=== PATIENT | male | born 1930 | race Caucasian/White ===

== ENCOUNTER 2018-12-03 16:36 | Inpatient (IN) ==
[2018-12-03] MEDS ORDERED: NS 1,000 ML IV ONE (17:59)
--- NOTE | 2018-12-03 18:06 | PROVIDER DOCUMENTATION ---
HPI-General Adult - General Chief Complaint: Abnormal Lab[s] Stated Complaint: ABN LAB Time Seen by Provider: 12/03/18 18:00 Source: patient Allergies/Adverse Reactions: Patient Allergies Allergy/AdvReac Type Severity Reaction Status Date / Time No Known Allergies Allergy Verified 02/07/15 13:10 Home Medications: Home Medication List Medication Instructions Recorded Confirmed Last Taken Type Aspirin 1 tab PO DAILY 02/07/15 02/07/15 02/06/15 07:30 History 1 Brimonidine Tartrate [Alphagan P] 1 drop LEFT EYE BID 02/07/15 02/07/15 02/06/15 19:30 History 1 Clonidine [Catapres] 1 mg PO DAILY 02/07/15 02/07/15 02/06/15 07:30 History 1 Dorzolamide 2% Oph Soln [Trusopt 1 drop LEFT EYE DAILY 02/07/15 02/07/15 02/06/15 19:30 History 2% Oph Soln] 1 LISINOpril [Prinivil] 1 tab PO DAILY 02/07/15 02/07/15 02/06/15 07:30 History 1 Latanoprost 0.005% Oph Soln 1 drop BOTH EYES DAILY 02/07/15 02/07/15 02/06/15 07:30 History [Xalatan 0.005% Oph Soln] Levobunolol HCl [Betagan] 1 drop LEFT EYE BID 02/07/15 02/07/15 02/06/15 19:30 History 1 Prednisolone 1% Oph Susp [Pred 1 drop RIGHT EYE DAILY 02/07/15 02/07/15 02/06/15 07:30 History Forte 1% Oph Suspension] 1 - History of Present Illness -Gen Adult Nature of Presenting Problems: 87 YOM PRESENTS WITH C/O ANEMIA AND DEHYDRATION. HE WAS SENT BY [facility] AT PCP OFFICE. HE REPORTS HIS H&H HAVE BEEN GOING DOWN OVER THE LAST FEW MONTHS FROM 8 TO 14 MOST RECENTLY. HE REPORTS HE HAS BEEN EATING/DRINKING WELL. HE CONFIRMS DIZZINESS ON STANDING, HAS HAD A FALL BUT DID NOT HIT HIS HEAD AND NO LOC. HE REPORTS STOOLS HAVE BEEN DARK BUT NOT BLACK AND WITH NO GROSS BLOOD. Location of Pain/Injury: reports: none Pain Radiation: reports: no radiation Quality of Pain: reports: none Onset/Duration: reports: unsure Timing: reports: still present Context/Activities at Onset: reports: other (STANDING FROM SITTING POSITION) Associated Symptoms: reports: dizziness (UPON STANDING) Similar Symptoms Previously?: No Recently seen or treated by another doctor?: Yes (SAW [facility] TODAY AND WAS SENT TO ER ) Review of Systems - Adult - REVIEW OF SYSTEMS - ADULT Constitutional: reports: no symptoms reported. denies: see HPI, chills, fever, fatique, night sweats, weight gain, weight loss, other Eyes: reports: decreased vision (PT IS LEGALLY BLIND). denies: no symptoms reported, see HPI, discharge, dry eyes, blurred vision, double vision, eye pain, redness, other Ears, Nose, Mouth & Throat: reports: no symptoms reported. denies: see HPI, ear discharge, ear pain, hearing loss, tinnitus, epistaxis, sinus problem, nose pain, loose teeth, mouth/dental pain, mouth swelling, hoarseness, throat pain, throat swelling, other Cardiovascular: reports: no symptoms reported. denies: see HPI, chest pain, edema, heart murmur, irregular heart rate, orthopnea, palpitations, poor circulation, PND, syncope, other Respiratory: reports: no symptoms reported. denies: see HPI, chronic cough, cough, dyspnea on exertion, excessive sputum production, hemoptysis, pleurisy, shortness of breath, wheezing, other Gastrointestinal: reports: see HPI, diarrhea (DARK STOOLS). denies: no symptoms reported, abdominal pain, hematemesis, constipation, difficulty swallowing, frequent heartburn, nausea, poor appetite, rectal bleeding, vomiting, other Genitourinary: reports: no symptoms reported. denies: see HPI, dysuria, discharge, frequency, flank pain, frequent UTI's, hematuria, hesitency, incontinence, urinary retention, urgency, other Musculoskeletal: reports: muscle weakness. denies: no symptoms reported, see HPI, bone pain, back pain, frequent leg cramps, joint pain, joint swelling, muscle aches, neck pain, other Integumentary: reports: no symptoms reported. denies: see HPI, hives, hair lo ss, itching, mole changes, nail changes, rash, skin sores/ulcer, skin thickening, other Neurological: reports: dizziness/vertigo (UPON STANDING). denies: no symptoms reported, see HPI, ataxia, headache/migraines, loss of balance, numbness, paresthesia, seizure, slurred speech, syncope, tremors, other Psychiatric: reports: no symptoms reported. denies: see HPI, anxiety, anti- depressant use, alcohol/drug dependence, depression, emotional problems, insomnia, panic attacks, suicidal thoughts, other Endocrine: reports: no symptoms reported. denies: see HPI, change in skin pigment, excessive sweating, goiter, cold intolerance, heat intolerance, increased hunger, increased thirst, polyuria, other Hematologic/Lymphatic: reports: no symptoms reported. denies: see HPI, blood clots, easy bruising, low blood count, lymphedema, prolonged bleeding, swollen lymph nodes, transfusions, other Allergic/Immunologic: reports: no symptoms reported. denies: see HPI, allergic reactions, allergic rhinitis, asthma, eczema, food allergy, frequent infections, hay fever, hives, positive PPD, urticaria, other Past History - Adult - PAST MEDICAL HISTORY-ADULT Review of Records: reports: Nursing Assessment Review, Social history reviewed & non-contributory. Physical Exam-General - PHYSICAL EXAM-ADULT Initial Vital Signs Reviewed: Yes - CONSTITUTIONAL General Appearance: appears well, alert, no apparent distress - EYES Eyes: PERRL/EOMI - HEAD, EARS, NOSE, MOUTH & THROAT HENMT: normocephalic/atraumatic, moist mucous membranes, normal ENT inspection - NECK Neck: non-tender, full range of motion, supple - RESPIRATORY Respiratory: chest non-tender, lungs clear - CARDIOVASCULAR Cardiovascular: normal peripheral pulses, regular rate, rhythm - GASTROINTESTINAL (ABDOMEN) Abdominal Exam: normal bowel sounds, non tender, soft - GENITOURINARY Hemoccult Exam: other (COMPLETED, SEE EMR RESULTS. NO OBVIOUS BLOOD NOTED) - LYMPHATIC Lymphatic: no adenopathy - MUSCULOSKELETAL Back Exam: normal inspection, no CVA tenderness Extremity: normal range of motion, non-tender, normal gait, pedal edema Peripheral Pulses: radial (R): 2+, radial (L): 2+, dorsalis-pedis (R): 2+, dorsalis-pedis (L): 2+ - SKIN Integumentary: normal color, normal turgor, warm/dry - NEUROLOGIC Neurologic: grossly normal - PSYCHIATRIC Psych/Mental Status: normal mood/affect, oriented x 3 Progress - PLAN OF CARE/RESULTS Progress/Plan/Lab Results: Vital Signs - 8 hr 12/03/18 16:44 Temperature 98.0 F Pulse Rate 74 Respiratory Rate 18 Blood Pressure 160/078 O2 Sat by Pulse Oximetry 98 Orders Category Date Time Status Saline Loc NOW Care 12/03/18 17:59 Active PRO B-NATRIURETIC PEPTIDE Stat Lab 12/03/18 17:59 Uncollected PT [PROTIME WITH INR] [COAG] Stat Lab 12/03/18 17:45 Uncollected PTT [COAG] Stat Lab 12/03/18 17:45 Ordered Stool [OCCULT BLOOD SCREENING] [STOOL] Stat Lab 12/03/18 17:59 Uncollected 0.9% Sodium Chloride Inj [Ns] 1,000 ml Med 12/03/18 17:59 Active IV 999 mls/hr EKG [EKG] Stat Ther 12/03/18 17:59 Ordered - EKG 1 Time of EKG reading by physician:: 18:32 EKG Read and Signed by:: Ramon Bush EKG Interpretation (*Must complete 3 of following elements*): Abnormal Rate: 72 Rhythm: NSR Glady: left QRS: LBB IN Interval: normal ST Wave: normal - CONSULTS/PCP/HOSPITALIST Notification #1 *Consult/PCP/Hospitalist*: HOPSITALIST PAGED AT 1905, 1925, 1999 AND [id number] RETURN CALL Time Discussed: 21:08 Reason/Comments: RECOMMENDS ADMIT TO [facility] FOR GI WORKUP #2 Consult: DR ALLAN Time Discussed: 20:20 Consult Disposition: other (RECS FOR PROTONIX, BLOOD, IVF) #3 Consult: DR GOODMAN Time Discussed: 21:51 Consult Disposition: Admit Departure - Departure Date of Disposition Decision: 12/03/18 Time of Disposition Decision: 21:51 DIAGNOSIS: Anemia, GI bleed, ELMER (acute kidney injury) Disposition: ADMITTED INPATIENT 09 Certified Medical Emergency: Emergent Condition: Stable Referrals and Follow-Ups: None,PCP [Primary Care Provider] - - Critical Care Note This patient required my direct & personal management of CC.: No Attestation - Physician/ ESTHER Attestation Patient care was provided by Advanced Practice Provider:: Yes Advanced Practice Provider:: Abiola Walton Advanced Practice Provider documentation review:: The Mid-level provider documentation, treatment plan and medical decision making was reviewed by the physician who agrees with all treatment and medical decision making by the MLP. The physician spent face to face time with patient:: No Advanced Practice Provider documentation review:: Supervising physician onsite and consulted in the evaluation and care of this patient. The physician did not have a face to face encounter with the patient.
--- NOTE | 2018-12-03 18:51 | EKG Report ---
Test Performed on : 12/03/2018 6:17:34 PM Test Reason : ANEMIA Blood Pressure : / mmHG Vent. Rate : 072 BPM Atrial Rate : 072 BPM P-R Int : 188 ms QRS Dur : 146 ms QT Int : 444 ms P-R-T Axes : 064 -54 075 degrees QTc Int : 486 ms Normal sinus rhythm. Left axis deviation Left bundle branch block Abnormal ECG When compared with ECG of 07-FEB-2015 11:42, premature supraventricular complexes. are no longer present Unconfirmed Result
[2018-12-03 19:02] LABS: OCCULT BLOOD 1 POSITIVE (NEGATIVE)
[2018-12-03 19:14] LABS: INR 1.01; PROTIME 13.8 Seconds (11.0-16.0)
[2018-12-03] MEDS ORDERED: PROTONIX IV ONE (20:25)
[2018-12-03] MEDS ORDERED: SODIUM CHLORIDE 0.9% INJ ONE (20:25)
[2018-12-03] MEDS ORDERED: PROTONIX ONE (21:49)
[2018-12-04] MEDS ORDERED: TEARISOL OPH SOLUTION LEFT EYE PRN (01:13)
[2018-12-04] MEDS ORDERED: SODIUM CHLORIDE 0.9% INJ SCH (01:30)
[2018-12-04] MEDS: NS 1,000 ML IV SCH ×2 (01:48→14:41)
--- NOTE | 2018-12-04 02:25 | HISTORY AND PHYSICAL ---
PRIMARY CARE PHYSICIAN: Dr. James. CHIEF COMPLAINT: Dark stools, dizziness and weakness times several weeks. HISTORY OF PRESENTING ILLNESS: The patient is an 87-year-old male with a history of hypertension and glaucoma who had presented to the emergency department with several weeks history of having dizziness, weakness and noticing dark stools. He initially was evaluated at [facility] and his case was discussed with Gastroenterology who recommended the patient be transferred to [facility] for further evaluation and management. At the time of my examination the patient states that he still feels weak. He denied any headache, fever, chills, chest pain, shortness of breath or any weight changes, but complained of some dizziness and weakness. PAST MEDICAL HISTORY: Includes hypertension, glaucoma. PAST SURGICAL HISTORY: Hemorrhoid surgery, eye surgery. ALLERGIES: No known drug allergies. CURRENT MEDICATIONS: Aspirin 81 mg p.o. daily, clonazepam 0.25 mg 1 p.o. daily, clonidine 0.1 mg p.o. daily, hydrochlorothiazide 25 mg 1 p.o. daily, Latanoprost 1 drop to both eyes at bedtime, lisinopril 20 mg 1 p.o. daily, Meloxicam 15 mg p.o. at bedtime, Humalog 0.5 mg 1 drop to left eye b.i.d. SOCIAL HISTORY: Sixty pack years history of smoking. Denies any history of alcohol or illicit drug use. FAMILY HISTORY: No history of coronary disease. REVIEW OF SYSTEMS: Fourteen point review of systems is as in the HPI. Other systems negative. PHYSICAL EXAMINATION: GENERAL: Cooperative friendly male. He is resting more comfortably now. VITAL SIGNS: Temperature 98.1 degrees, pulse 74, respiration 18, blood pressure 160/78. HEENT: Atraumatic, normocephalic. NECK: No masses. CHEST: Clear to auscultation. CARDIOVASCULAR: Regular rate and rhythm. ABDOMEN: Soft. Positive bowel sounds. EXTREMITIES: No edema. NEUROLOGIC: He is awake, alert and oriented x3. GENITOURINARY: No bladder distention. SKIN: Warm. LABORATORIES AND STUDIES: WBC is 7.10, hemoglobin 8.5, hematocrit 26.9, platelets 306,000. Sodium 143, potassium 3.9, chloride 112, CO2 is 19, BUN is 28, creatinine is 1.6, glucose 118. ASSESSMENT: The patient is an 87-year-old male with a history of hypertension and glaucoma who had presented to the emergency department with several weeks history of having dizziness and weakness and noticing dark stools. He was initially seen at [facility] and his case was discussed with air quality technician who recommended the patient be transferred to [facility] for further evaluation and management. 1. Gastrointestinal bleed. 2. Hypertension. 3. Acute kidney injury. PLAN: 1. We will admit the patient to medical floor with telemetry. 2. Keep patient NPO and start the patient on a PPI and consult Gastroenterology. 3. Monitor blood pressure closely. 4. We will monitor renal function. 5. Continue gentle hydration. 6. Put the patient on DVT prophylaxis with SCDs. 7. We will continue to follow, reassess and make further recommendation based on the patient's clinical course. cc: Jd Parson MD
[2018-12-04] MEDS: TIMOPTIC 0.5% OPH SOLUTION LEFT EYE SCH ×2 (09:38→20:53)
--- NOTE | 2018-12-04 11:53 | GASTROENTEROLOGY CONSULTATION ---
DATE: 12/04/2018 REASON FOR CONSULTATION: Anemia, generalized weakness. HISTORY OF PRESENT ILLNESS: Mr. Hunter Banks is an 87-year-old gentleman with past medical history of hypertension, glaucoma, partial blindness, chronic pain on meloxicam and aspirin, who presents with several weeks of dizziness, generalized weakness and 1 week of diarrhea. The patient reports some having diarrhea 2 to 4 times a day for the last week. He is unable to see if there is any blood in his stool given his partial vision loss. No nausea, vomiting, abdominal pain, chest pain, trouble breathing. He does notice some lightheadedness and over the last year and a half, he has lost about 70 pounds from [*] to 166 pounds. No family history of GI malignancies. No other NSAIDs or blood thinners. He has never had an EGD or colonoscopy in the past. The patient initially presented at [facility] where he was noted to be stable and have a hemoglobin of 8.5 from a baseline of reportedly 14 about 2 months ago. He also had a creatinine of 1.6 from unknown baseline, suspected acute kidney injury. REVIEW OF SYSTEMS: As per HPI, otherwise 12 point review of systems is negative. 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 PAST SURGICAL HISTORY: Multiple eye surgeries, hemorrhoid surgery in the past. No abdominal surgeries. SOCIAL HISTORY: He has a 60 pack-year smoking history. No alcohol or drug use. FAMILY HISTORY: No family history of GI malignancies or IBD. MEDICATIONS: 1. Aspirin 81 mg daily. 2. Meloxicam 15 mg at bedtime. 3. Clonazepam. 4. Clonidine. 5. Hydrochlorothiazide. 6. Latanoprost eyedrops. 7. Lisinopril. 8. [*]eyedrops. 9. Vitamin C. 10. Vitamin B12. 11. Multivitamin. 12. Probiotic. ALLERGIES: No known drug allergies. PHYSICAL EXAMINATION: Vital Signs: Temperature is 97.5 degrees, heart rate 66, respiratory rate 17, blood pressure 124/69, O2 saturation 100% on room air. Generally: The patient is awake, alert, oriented, no acute distress. HEENT: Sclerae anicteric. He has a cataract in the left eye. Extraocular motor intact. Neck: Supple. No JVD, no lymphadenopathy. Cardiac: Regular rate and rhythm. No murmurs. Lungs: Clear to auscultation bilaterally. Abdomen: Soft, nontender, nondistended. Normoactive bowel sounds. No rebound or guarding. Extremities: No clubbing, cyanosis, or edema. Neurologic: Nonfocal. LABORATORY DATA: Sodium 143, potassium 3.9, chloride of 112, bicarb 19, BUN 28, creatinine 1.6, glucose 118, calcium 7.8. Iron 48, TIBC 174, ferritin 224, iron saturation 28%. LFTs are normal. ProBNP is 1279. Folate of 23.5, vitamin B12 of 875. ASSESSMENT AND PLAN: 1. Mr. Hunter Banks is an 87-year-old gentleman with past medical history of hypertension and chronic pain on aspirin and meloxicam, who presents with generalized weakness, lightheadedness in the setting of new onset anemia. He also reports having 1 week of diarrhea as well as abnormal weight loss over the last year and half. He has not had any bowel movements today. Hemoccult at outside hospital was positive for blood. Iron studies and B12 and folate are within normal limits. The patient is currently clinically stable. He is on IV PPI twice a day. We will plan for a diagnostic EGD tomorrow, n.p.o. after midnight. He can be on clear liquids for now. For his anemia, we will need to do an upper GI endoscopy, holding NSAIDs including meloxicam and aspirin, trending hemoglobin and hematocrit daily. Transfuse as needed to maintain hemoglobin between 7 and 8. Diagnostic EGD with myself tomorrow. 2. Diarrhea. The patient reports diarrhea without any fevers, chills, sweats. Abdomen is benign. If patient has recurrent diarrhea, recommend a diagnostic study with C. difficile and stool culture. His white count is normal. No indication for cross-sectional imaging at this time. 3. Hypertension. His blood pressure is stable. We are holding his blood pressure medications for now. 4. Elevated creatinine of 1.6, unclear baseline. Suspected acute kidney injury in the setting of volume depletion. He has received IV fluids. We will trend his creatinine and intake and output. 5. Abnormal weight loss. The patient has not had a prior colonoscopy in the past. If his EGD is unrevealing, we will plan for diagnostic colonoscopy while he is inpatient. Thank you for this consult. We will follow with you. Please call with any questions or concerns.
[2018-12-04] MEDS: PROTONIX IV SCH ×2 (14:41→21:52)
[2018-12-04 16:32] LABS: BASO# 0.03 X1000 (0.0-0.2); BASO% 0.5 % (0.0-0.8); EOS# 0.15 X1000 (0.0-0.7); EOS% 2.3 % (0.0-10.0); HEMOGLOBIN 9.5 g/dL (14.0-18.0); IMM GRAN# 0.03 X1000 (0.0-0.04); IMM GRAN% 0.5 % (0.0-0.5); LYMPH# 1.65 X1000 (1.2-3.4); LYMPH% 24.8 % (20.5-51.1); MCH 30.6 PG (27-31); MCHC 31.7 g/dL (33-37); MCV 96.8 FL (81-99); MPV 9.6 FL (7.4-10.4); NEUT# 3.99 X1000 (1.4-6.5); NEUT% 59.9 % (42.2-75.2); PLT 330 X1000 (130-400); RDW 14.6 % (11.5-14.5); WBC 6.65 X1000 (4.8-10.8)
--- NOTE | 2018-12-04 17:45 | PROGRESS NOTE ---
DATE: 12/04/2018 SUBJECTIVE: The patient resting in bed. Not in any obvious distress. OBJECTIVE: Vital signs: Temperature 97.6 degrees, pulse 60, respiratory rate 16, blood pressure 141/79, oxygen saturation 100%. HEENT: Atraumatic, normocephalic. Cardiovascular system: S1, S2. Respiratory system has evidence of good air entry bilaterally. Abdomen is soft, nontender. No masses felt. Extremities: No evidence of edema. Central nervous system: No obvious focal deficits noted. LABORATORY DATA: Hematocrit is 26.9. ASSESSMENT AND PLAN: 1. Gastrointestinal bleed. Maintain patient on proton pump inhibitor. Follow up on hemoglobin and hematocrit, transfuse packed red blood cells as needed. GI team following. 2. Hypertension, stable. 3. Acute kidney injury. Maintain patient on intravenous fluids and follow up on renal function. 4. Elevated D-dimer. The patient does not seem to be in CHF at this time. We will obtain 2D echo of the heart to assess current ejection fraction. 5. Deep vein thrombosis prophylaxis. Sequential compression devices. 6. Gastrointestinal prophylaxis. Continue proton pump inhibitor. cc: Haim Márquez MD
[2018-12-04] MEDS: PRED FORTE 1% OPH SUSPENSION LEFT EYE SCH (20:53)
[2018-12-04] MEDS: TRUSOPT 2% OPH SOLN RIGHT EYE SCH (20:53)
[2018-12-04] MEDS ORDERED: VITAMIN D PO SCH (21:00)
[2018-12-04] MEDS ORDERED: XALATAN 0.005% OPH SOLN BOTH EYES SCH (21:00)
[2018-12-05 07:37] LABS: BASO# 0.03 X1000 (0.0-0.2); BASO% 0.4 % (0.0-0.8); EOS# 0.19 X1000 (0.0-0.7); EOS% 2.8 % (0.0-10.0); HEMATOCRIT 29.9 % (42.0-52.0); HEMOGLOBIN 9.5 g/dL (14.0-18.0); IMM GRAN# 0.02 X1000 (0.0-0.04); IMM GRAN% 0.3 % (0.0-0.5); LYMPH# 1.65 X1000 (1.2-3.4); LYMPH% 24.1 % (20.5-51.1); MCH 30.9 PG (27-31); MCHC 31.8 g/dL (33-37); MCV 97.4 FL (81-99); MONO# 0.79 X1000 (0.11-0.59); MONO% 11.5 % (1.7-9.3); MPV 10.9 FL (7.4-10.4); NEUT# 4.18 X1000 (1.4-6.5); NEUT% 60.9 % (42.2-75.2); PLT 346 X1000 (130-400); RBC 3.07 XMIL (4.7-6.1); RDW 14.7 % (11.5-14.5); WBC 6.86 X1000 (4.8-10.8)
[2018-12-05 07:43] LABS: CREATININE 1.3 mg/dL (0.7-1.2); POTASSIUM 3.7 mmol/L (3.5-5.1)
[2018-12-05] MEDS ORDERED: DIPRIVAN 1% ONE (08:44)
[2018-12-05] MEDS ORDERED: XYLOCAINE-MPF 2% ONE (09:05)
[2018-12-05] MEDS: TIMOPTIC 0.5% OPH SOLUTION LEFT EYE SCH (11:20)
[2018-12-05] MEDS: TRUSOPT 2% OPH SOLN RIGHT EYE SCH (11:20)
[2018-12-05] MEDS: PROTONIX IV SCH (11:20)
[2018-12-05] MEDS: PRED FORTE 1% OPH SUSPENSION LEFT EYE SCH (11:21)
--- NOTE | 2018-12-05 11:25 | OPERATIVE NOTE ---
PROCEDURE DATE: 12/05/2018 EXAM: Upper gastrointestinal endoscopy. PROVIDER: Torsten Melgar M.D. INDICATIONS: Symptomatic anemia. MEDICATIONS: Monitored anesthesia care. DESCRIPTION OF PROCEDURE: Prior to procedure, history and physical was performed, and the patient's medication allergies were reviewed. The patient's tolerance to previous anesthesia was also reviewed. The risks and benefits of the procedure and sedation options and risks were discussed with the patient. All questions were answered, and informed consent was obtained. After reviewing the risks and benefits, the patient was deemed in satisfactory condition to undergo the procedure. The endoscope was passed under direct visualization. Throughout the procedure, the patient's blood pressure, pulse, and oxygen saturation were monitored continuously. The endoscope was introduced through the mouth, and advanced to the second part of the duodenum. The upper GI endoscopy was accomplished without difficulty. The patient tolerated the procedure well. COMPLICATIONS: No immediate complications. ESTIMATED BLOOD LOSS: Minimal. FINDINGS: The esophagus was normal. Z-line was located at 45 cm from the incisors. Stomach was also normal. Retroflexion in the stomach was unremarkable. Random gastric biopsies were obtained with cold biopsy forceps to rule out Helicobacter pylori. Within the anterior distal duodenal bulb, there was a 1 cm cratered duodenal ulcer, clean base, with no stigmata of recent bleeding. Second portion of the duodenum was normal. No indication for therapy was is indicated. IMPRESSION: Normal esophagus. Normal stomach, biopsied. A 1 cm nonbleeding duodenal ulcer, likely the etiology of patient's anemia and probable gastrointestinal bleeding. RECOMMENDATIONS: Await pathology results. Transition PPI to pantoprazole 40 mg twice a day, and continue for 3 months, then once daily indefinitely in the setting of aspirin use. Avoid meloxicam and other NSAIDs. Recheck hemoglobin and hematocrit in 1 to 3 months after discharge. Low risk of rebleeding. The patient can resume a cardiac diet, and be discharged from a GI perspective. Please call with any questions or concerns.
[2018-12-05 11:43] VITALS: BP 139/92
--- NOTE | 2018-12-06 07:37 | DISCHARGE SUMMARY ---
ADMISSION DATE: 12/03/2018 DISCHARGE DATE: 12/05/2018 PRINCIPAL DIAGNOSIS: Gastrointestinal bleed secondary to probably peptic ulcer disease. SECONDARY DIAGNOSES: 1. Hypertension. 2. Chronic joint pain. 3. 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 4. Anxiety disorder. DISCHARGE MEDICATIONS: Protonix 40 mg p.o. daily, Carafate 1 g every 6 hours, latanoprost eyedrops 0.05% applied to both eyes as directed, Trusopt 1 drop in right eye twice a day, prednisolone 1 drop in left eye twice a day, lisinopril to be taken as directed, vitamin D3 5000 units p.o. at bedtime, Klonopin to be taken as directed, hydrochlorothiazide 1 tablet daily, probiotics to be taken as directed, timolol eyedrops to be taken twice a day. CONSULTATIONS DONE DURING THIS HOSPITAL STAY: Dr. Torsten Melgar, gastroenterology. PROCEDURES DONE DURING THIS HOSPITAL STAY: GI endoscopic studies done on 12/05/2018. HOSPITAL COURSE: Mr. Hunter Banks is an 87-year-old male who was admitted to the hospital because of a GI bleed. He also has a history of hypertension and glaucoma. Renal function was slightly impaired at the time of presentation. The patient had upper GI endoscopic studies and it showed evidence of a peptic ulcer. At this time, the patient has done well. He is stable and he can be discharged home today. DIET: Regular. ACTIVITY: As tolerated. DISCHARGE MEDICATIONS: He is expected to take discharge medications as noted above. PHYSICAL EVALUATION: Vital Signs: During my evaluation today, his vital signs were as follows: Temperature 97.9 degrees, pulse 75, respiratory rate 16, blood pressure 145/82, oxygen saturation 100%. HEENT: Atraumatic, normocephalic. Cardiovascular System: S1 and S2. Respiratory System: Has evidence of good air entry bilaterally. Abdomen: Soft, nontender. No masses felt. Extremities: No evidence of edema. Central Nervous System: No obvious focal deficit noted. PLAN: Discharge home today. Follow up with Dr. Melgar in the outpatient. cc: Haim Márquez MD
== END 2018-12-05 14:28 | disposition home or self-care (01) | DRG 379 ==
LOC: P.ED 16:36 → 3N 22:56 → SUATTDRO 22:56
PROVIDERS: ATTEND Internal Medicine
CPT/HCPCS: 36415; 80048; 80053; 82270; 82607; 82728; 82746; 82948; 83540; 83550; 83880; 85025; 85610; 85730; 88305; 88312; 93005; 96361; 96374; 99285; A9270; C9113; J7030; S0164; XXXXX